=== PATIENT | female | born 1980 | race Caucasian/White ===

== ENCOUNTER 2016-12-06 16:28 | Emergency (ER) | payer OTHER, MEDICAID ==
[2016-12-06 17:18] VITALS: RESP 18; TEMP 98.5
--- NOTE | 2016-12-06 19:11 | EDPHY ---
H & P Stated Complaint: Left knee pain from skiing fall 4 days ago. Time Seen by Provider: 12/06/16 17:23 HPI/ROS: CHIEF COMPLAINT: left knee pain HISTORY OF PRESENT ILLNESS: 36-year-old female presents emergency department complaining of medial left knee pain. Patient fell skiing 1 week ago and has had medial knee pain since. Patient reports her pain has been getting worse. It is worse with ambulation, worse with movement. She denies any previous injury to this knee. Patient reports it feels unstable. She has been taking Tylenol for pain which is not helping. She denies other complaints. Source: Patient Exam Limitations: No limitations - Personal History LMP (Females 10-55): 1-7 Days Ago Current Tetanus/Diphtheria Vaccine: Yes Current Tetanus Diphtheria and Acellular Pertussis (TDAP): Yes - Medical/Surgical History Hx Asthma: No Hx Chronic Respiratory Disease: No Hx Diabetes: No Hx Cardiac Disease: No Hx Renal Disease: No Hx Cirrhosis: No Hx Alcoholism: No Hx HIV/AIDS: No Hx Splenectomy or Spleen Trauma: No Other PMH: Denies - Social History Smoking Status: Never smoked - Physical Exam Exam: GEN: Awake, alert, oriented, no acute distress RESP: nl resp effort MSK: Left knee with full flexion and extension, positive valgus stress test, tenderness to palpation to medial joint line, negative anterior drawer, negative Alex's, 2+ pedal pulses, sensation intact to light touch, mild medial swelling SKIN: No break in skin Constitutional: Initial Vital Signs Temperature (C) 36.9 C 12/06/16 17:15 Heart Rate 64 12/06/16 17:15 Respiratory Rate 18 12/06/16 17:15 Blood Pressure 125/84 H 12/06/16 17:15 O2 Sat (%) 96 12/06/16 17:15 O2 Delivery Mode Room Air Allergies/Adverse Reactions: No Known Allergies Allergy (Unverified 12/06/16 17:13) Home Medications: Medication Instructions Recorded NK [No Known Home Meds] 12/06/16 Medical Decision Making - Diagnostics Imaging: Knee x-ray independently reviewed by me- Findings: A fracture is not identified. The bone alignment is normal. The soft tissues are unremarkable. Impression: Negative for fracture. Dictated By: Nate Keyes MD Departure - Departure Disposition: Home, Routine, Self-Care Clinical Impression: Left knee sprain Qualifiers: Encounter type: initial encounter Involved ligament of knee: medial collateral ligament Qualified Code(s): S83.412A - Sprain of medial collateral ligament of left knee, initial encounter Condition: Good Instructions: Knee Sprain (ED) Additional Instructions: Rest, ice, elevate, take 600mg of ibuprofen every 8 hours with food for 3-5 days as needed for pain and swelling. Wear knee immobilizer at all times until you follow up with orthopedist. Use crutches as needed. Call the orthopedist tomorrow to schedule this appointment. Return to the emergency department for any numbness, tingling, discoloration of you limb or other concerns. Referrals: Edna Daley MD [Medical Doctor] - As per Instructions (Orthopedist on- call)
[2016-12-06 19:47] VITALS: BP 120/78; PULSE 74; O2SAT 93
== END 2016-12-06 19:46 | disposition home or self-care (01) ==
DX: S83.412A Sprain of medial collateral ligament of left knee, initial encounter (principal); V00.321A Fall from snow-skis, initial encounter; Y99.8 Other external cause status; Y93.23 Activity, snow (alpine) (downhill) skiing, snowboarding, sledding, tobogganing and snow tubing